=== PATIENT | female | born 1960 | race Caucasian/White ===

== ENCOUNTER 2019-02-05 11:48 | Inpatient (IN) | payer OTHER, BC ==
[2019-02-05] MEDS: SOD CHLORIDE 0.9% 1,000 ML IV (12:37)
[2019-02-05] MEDS ORDERED: CEFAZOLIN 2 GM/50 ML (PMX) 50 ML IVPB (13:00)
[2019-02-05] MEDS ORDERED: PROPOFOL 20 ML ×2 (14:52→15:43)
[2019-02-05] MEDS ORDERED: FENTAnyl 50 MCG/ML VIAL (14:52)
[2019-02-05] MEDS ORDERED: CEFAZOLIN 1 GM INJ (14:52)
[2019-02-05] MEDS ORDERED: METOCLOPRAMIDE 10 MG INJ (14:55)
[2019-02-05] MEDS ORDERED: MIDAZOLAM 1 MG/ML 2 ML INJ (14:56)
[2019-02-05] MEDS ORDERED: HYDROmorphONE 1 MG/5 ML IV SYRINGE IV (15:00)
[2019-02-05] MEDS ORDERED: OXYCODONE/ACETAMINOPHEN (5/325) TAB PO ×2 (15:00)
[2019-02-05] MEDS ORDERED: FENTAnyl 50 MCG/ML VIAL IV ×3 (15:00)
[2019-02-05] MEDS ORDERED: MEPERIDINE 25 MG INJ IV (15:00)
[2019-02-05] MEDS ORDERED: ONDANSETRON 4 MG INJ IV (15:00)
[2019-02-05] MEDS ORDERED: DIPHENHYDRAMINE 50 MG INJ IV (15:00)
[2019-02-05] MEDS ORDERED: ONDANSETRON 4 MG INJ (15:16)
[2019-02-05] MEDS ORDERED: HYDROmorphONE 2 MG/ML SYG (15:41)
[2019-02-05] MEDS ORDERED: D5W-0.45 NACL + KCL 20 MEQ 1,000 ML IV (16:42)
[2019-02-05] MEDS ORDERED: ACETAMINOPHEN 1000MG/100ML IV 100 ML IVPB (17:00)
[2019-02-05] MEDS ORDERED: morphine 2 MG INJ IV (17:00)
[2019-02-05] MEDS: HYDROmorphONE 1 MG/5 ML IV SYRINGE IV ×2 (17:02→17:23)
[2019-02-05] MEDS ORDERED: DEXTROSE 50% 50 ML SYRINGE IV ×2 (19:00)
[2019-02-05] MEDS ORDERED: GLUCOSE GEL 15 GRAM TUBE BUCCAL (19:00)
[2019-02-05] MEDS ORDERED: GLUCAGON 1 MG INJ IM (19:00)
[2019-02-05] MEDS ORDERED: GLUCOSE GEL 15 GRAM TUBE PO ×2 (19:00)
[2019-02-05] MEDS: SOD CHLORIDE 0.45% 1,000 ML IV (19:49)
[2019-02-05] MEDS: metFORMIN 500 MG TAB PO (20:53)
[2019-02-05] MEDS: ATORVASTATIN 10 MG TAB PO (20:53)
[2019-02-05] MEDS: INSULIN ASPART [NOVOLOG] 3 ML PEN SC (21:00)
[2019-02-06 05:22] LABS: ADD MAN DIFF? NO
[2019-02-06 05:26] LABS: BASOPHILS % 0.3 % (0.0-2.0); EOSINOPHILS # 0.1 10^3/ul (0.0-0.5); EOSINOPHILS % 0.5 % (0.0-7.0); HEMATOCRIT 33.7 % (37.0-47.0); LYMPHOCYTES # 2.5 10^3/ul (0.8-2.9); MEAN CORPUSCULAR HEMOGLOBIN 26.2 pg (29.0-33.0); MEAN CORPUSCULAR HGB CONC 29.7 g/dl (32.0-37.0); MEAN CORPUSCULAR VOLUME 88.5 fl (82.0-101.0); MEAN PLATELET VOLUME 9.7 fl (7.4-10.4); MONOCYTE # 0.6 10^3/ul (0.3-0.9); MONOCYTES % 5.5 % (0.0-11.0); NEUTROPHILS % 71.4 % (39.0-77.0); PLATELET COUNT 394 10^3/UL (140-415); RED BLOOD COUNT 3.81 10^6/ul (4.20-5.40); RED CELL DISTRIBUTION WIDTH 16.9 % (11.5-14.5)
[2019-02-06 05:26] LABS: WHITE BLOOD COUNT 11.2 10^3/ul (4.8-10.8)
[2019-02-06] MEDS: PANTOPRAZOLE (EC) 40 MG TAB PO (05:27)
[2019-02-06 05:47] LABS: ANION GAP 4 (5-13); BLOOD UREA NITROGEN 11 mg/dl (7-20); CALCIUM 8.1 mg/dl (8.4-10.2); CARBON DIOXIDE 34 mmol/L (21-31); CHLORIDE 102 mmol/L (97-110); CREATININE 0.57 mg/dl (0.44-1.00); Estimated GFR > 60 mL/min (>60); GLUCOSE 140 mg/dl (70-220); POTASSIUM 3.4 mmol/L (3.5-5.1); SODIUM 140 mmol/L (135-144)
[2019-02-06] MEDS: HYDROCODONE/APAP (5/325) TAB PO ×3 (06:06→20:29)
[2019-02-06] MEDS: INSULIN ASPART [NOVOLOG] 3 ML PEN SC ×4 (07:57→22:15)
[2019-02-06] MEDS: AMLODIPINE 10 MG TAB PO (08:07)
[2019-02-06] MEDS: metFORMIN 500 MG TAB PO ×2 (08:07→22:15)
[2019-02-06] MEDS: METOPROLOL (XL) 100 MG TAB PO (08:11)
[2019-02-06] MEDS: BENAZEPRIL 40 MG TAB PO (08:12)
[2019-02-06] MEDS: POTASSIUM CHLORIDE (SR) 20 MEQ TAB PO (18:40)
[2019-02-06] MEDS ORDERED: LEVALBUTEROL (NEB) 1.25 MG/0.5 ML AMP HHN (19:00)
[2019-02-06] MEDS: ATORVASTATIN 10 MG TAB PO (22:15)
[2019-02-06 22:59] LABS: LACTIC ACID 1.4 mmol/L (0.5-2.0)
[2019-02-07] MEDS: ONDANSETRON 4 MG INJ IV (02:27)
[2019-02-07] MEDS: HYDROCODONE/APAP (5/325) TAB PO ×2 (02:35→11:49)
[2019-02-07] MEDS: PANTOPRAZOLE (EC) 40 MG TAB PO (06:28)
[2019-02-07 07:16] LABS: ADD MAN DIFF? NO
[2019-02-07 07:26] LABS: BASOPHILS % 0.2 % (0.0-2.0); EOSINOPHILS # 0.1 10^3/ul (0.0-0.5); EOSINOPHILS % 1.1 % (0.0-7.0); HEMATOCRIT 33.2 % (37.0-47.0); HEMOGLOBIN 9.7 g/dl (12.0-16.0); LYMPHOCYTES % 21.6 % (15.0-51.0); MEAN CORPUSCULAR HEMOGLOBIN 26.1 pg (29.0-33.0); MEAN CORPUSCULAR HGB CONC 29.2 g/dl (32.0-37.0); MEAN CORPUSCULAR VOLUME 89.2 fl (82.0-101.0); MONOCYTE # 0.5 10^3/ul (0.3-0.9); NEUTROPHIL # 6.6 10^3/ul (1.6-7.5); NEUTROPHILS % 71.8 % (39.0-77.0); PLATELET COUNT 375 10^3/UL (140-415); RED BLOOD COUNT 3.72 10^6/ul (4.20-5.40); RED CELL DISTRIBUTION WIDTH 16.5 % (11.5-14.5)
[2019-02-07 07:26] LABS: WHITE BLOOD COUNT 9.1 10^3/ul (4.8-10.8)
[2019-02-07 07:41] LABS: HEMOGLOBIN A1C 7.3 % (0-5.9)
[2019-02-07 07:56] LABS: ANION GAP 2 (5-13); BLOOD UREA NITROGEN 13 mg/dl (7-20); CARBON DIOXIDE 38 mmol/L (21-31); CHLORIDE 99 mmol/L (97-110); CREATININE 0.65 mg/dl (0.44-1.00); Estimated GFR > 60 mL/min (>60); GLUCOSE 183 mg/dl (70-220); POTASSIUM 4.1 mmol/L (3.5-5.1); SODIUM 139 mmol/L (135-144)
[2019-02-07] MEDS: BENAZEPRIL 40 MG TAB PO (08:25)
[2019-02-07] MEDS: METOPROLOL (XL) 100 MG TAB PO (08:25)
[2019-02-07] MEDS: metFORMIN 500 MG TAB PO ×2 (08:25→20:52)
[2019-02-07] MEDS: AMLODIPINE 10 MG TAB PO (08:26)
[2019-02-07] MEDS: INSULIN ASPART [NOVOLOG] 3 ML PEN SC ×4 (08:27→20:52)
[2019-02-07] MEDS: glipiZIDE 10 MG TAB PO ×2 (08:30→17:06)
[2019-02-07] MEDS: ATORVASTATIN 10 MG TAB PO (20:52)
[2019-02-08] MEDS: HYDROCODONE/APAP (5/325) TAB PO ×3 (00:49→15:44)
[2019-02-08] MEDS: PANTOPRAZOLE (EC) 40 MG TAB PO (05:43)
[2019-02-08] MEDS: INSULIN ASPART [NOVOLOG] 3 ML PEN SC ×2 (08:00→12:13)
[2019-02-08] MEDS: METOPROLOL (XL) 100 MG TAB PO (09:19)
[2019-02-08] MEDS: BENAZEPRIL 40 MG TAB PO (09:19)
[2019-02-08] MEDS: glipiZIDE 10 MG TAB PO (09:19)
[2019-02-08] MEDS: AMLODIPINE 10 MG TAB PO (09:21)
[2019-02-08] MEDS: metFORMIN 500 MG TAB PO (09:22)
== END 2019-02-08 16:17 | disposition home or self-care (01) | DRG 580 ==
LOC: SDS 11:48 → REC 16:44 → PP2 18:10
PROVIDERS: Surgery Surgical Oncology
PROC: 0HTU0ZZ Resection of Left Breast, Open Approach (ICD-10-PCS; principal; 2019-02-05 14:30)
PROC: 07B60ZZ Excision of Left Axillary Lymphatic, Open Approach (ICD-10-PCS; 2019-02-05 14:30)
DX: C50.912 Malignant neoplasm of unspecified site of left female breast (principal); C77.3 Secondary and unspecified malignant neoplasm of axilla and upper limb lymph nodes; Z68.43 Body mass index [BMI] 50.0-59.9, adult; E87.6 Hypokalemia; R09.02 Hypoxemia; I10 Essential (primary) hypertension; J45.909 Unspecified asthma, uncomplicated; E11.9 Type 2 diabetes mellitus without complications; E66.01 Morbid (severe) obesity due to excess calories; R50.9 Fever, unspecified
CPT/HCPCS: 71045; 80048; 82962; 83036; 83605; 85025; 87040-91; 88307